=== PATIENT | female | born 1950 | race Caucasian/White ===

== ENCOUNTER 2019-04-09 12:05 | Emergency (ER) | payer MEDICARE, OTHER ==
[~2019-04-09] VITALS: Ht 162.6 cm; Wt 71.0 kg
[2019-04-09 12:07] VITALS: BP 218/117
[2019-04-09] MEDS ORDERED: METF500T PO (13:51)
[2019-04-09] MEDS ORDERED: LISI-600 PO (13:51)
== END 2019-04-09 14:16 | disposition home or self-care (01) ==
LOC: ER 12:05
DX: E11.65 Type 2 diabetes mellitus with hyperglycemia (principal); I10 Essential (primary) hypertension; Z76.0 Encounter for issue of repeat prescription; Z79.899 Other long term (current) drug therapy
CPT/HCPCS: 82948; 99283